=== PATIENT | male | born 1945 | race Caucasian/White ===

== ENCOUNTER → 2018-07-11 12:40 | Outpatient (CLI) | payer MEDICARE, OTHER, SELFPAY ==
--- NOTE | 2018-07-11 | DI.ECHO.S_ITS ---
[facility]---------+ [facility] +---------+ : : [address] : : : : [id number] : : : : Phone: [phone] Echocardiogram Report + + :Name: EARL PATTEN Study Date: 07/11/2018 Height: 72 in : :[facility] Weight: 173 lb : : Gender: Male BSA: 2.0 m2 : :: 1945 Age: 72 yrs BP: 116/66 mmHg: :Reason For Study: Aortic valve stenosis : :Ordering Physician: Shlomo : :[place] Performed By: Aixa Petit : :Referring: Dr. Dejon Linares : + + Interpretation Summary Left ventricular systolic function is normal without focal wall motion abnormalities with the ejection fraction visually estimated to be 60-65% and appears slightly less dynamic compared to the previous study. There is borderline concentric left ventricular hypertrophy but diastolic parameters suggest probable normal left ventricular diastolic function and normal filling pressures. The right ventricle is normal in size and function and is unchanged compared to the previous study. The right ventricular systolic pressure is estimated to be at least 33 mmHg based on an estimated right atrial pressure of 3 mm Hg. Comparison with the previous study is not possible because this was unable to be assessed on the previous study. Both atria are normal in size and are unchanged compared to the previous study. The aortic valve is bicuspid and moderately calcified with severely reduced leaflet mobility that is progressive compared to the previous study producing probable severe aortic stenosis with a peak aortic velocity that is now 4.3 m/s compared to 3.3 m/s previously and now with a mean gradient of 38 mmHg and a severity ratio of 0.24. The calculated aortic valve area is 0.8 cm2. No aortic regurgitation is present. There is no other significant valvular heart disease. The aortic root is mildly dilated and measures moderately larger compared to the previous study while the ascending aorta is mild-moderately enlarged and is similar compared to the previous study. Procedure: A two-dimensional transthoracic echocardiogram with color flow and Doppler was performed. The study quality was technically adequate. Comparison is made with the echocardiogram of 08-30-15. The patient was in normal sinus rhythm during the exam. Left Ventricle: The left ventricle is normal in size. There is borderline concentric left ventricular hypertrophy. Left ventricular systolic function is normal without focal wall motion abnormalities. The ejection fraction is estimated to be 60-65%. This is slightly less dynamic compared to the previous study. Diastolic parameters suggest probable normal left ventricular diastolic function and normal filling pressures. Right Ventricle: The right ventricle is normal in size and function. This is unchanged compared to the previous study. Atria: Both atria are normal in size. This is unchanged compared to the previous study. The interatrial septum is intact with no evidence for an atrial septal defect. Mitral Valve: The mitral valve is grossly normal. There is trace mitral regurgitation. This is unchanged compared to the previous study. Aortic Valve: The aortic valve is bicuspid. The aortic valve is moderately calcified. Leaflet mobility is severely reduced. This is progressive compared to the previous study. There is severe aortic stenosis. This is progressive compared to the previous study. The peak aortic velocity is 4.3 m/sec. The peak aortic velocity on the previous exam was 3.3 m/sec. The aortic valve mean gradient is 38 mmHg. Severity ratio is 0.24. The calculated aortic valve area is 0.8 cm2. No aortic regurgitation is present. Tricuspid Valve: The tricuspid valve is normal in structure and function. There is trace tricuspid regurgitation. The right ventricular systolic pressure is estimated to be at least 33 mmHg based on an estimated right atrial pressure of 3 mm Hg. Comparison with the previous study is not possible because this was unable to be assessed on the previous study. Pulmonic Valve: The pulmonic valve is not well seen, but is grossly normal. There is trace pulmonic regurgitation. There is no other significant valvular heart disease. Great Vessels: The aortic root is mildly dilated. This is moderately larger compared to the previous study. The ascending aorta is mild-moderately enlarged. This is similar compared to the previous study. The aortic arch is normal in size. The IVC is of normal diameter and collapses greater than 50% with a sniff. This suggests a low right atrial pressure of 3 mm Hg. Pericardium/ Pleura There is no pericardial effusion. There is no pleural effusion. MMode/2D Measurements & Calculations LVIDd: 4.0 cm LVOT diam: 2.1 cm LVIDs: 2.7 cm Ao root diam: 4.2 cm FS: 33.9 % asc Aorta Diam: 3.9 cm IVSd: 1.1 cm Ao Arch Diam (Prox Trans): 2.6 cm LVPWd: 1.0 cm LV bowers. diameter/BSA (cm/m^2): 2.0 LV sys. diameter/BSA (cm/m^2): 1.3 LA dimension: 4.3 cm RA long axis: 4.6 cm LA A2 area: 19.7 cm2 RA area: 15.9 cm2 LA A4 area: 17.7 cm2 RA vol: 47.1 ml LA length (vol): 4.9 cm RA : 23.5 ml/m2 LA vol: 59.8 ml IVC diam: 1.4 cm LA vol index: 29.9 ml/m2 RVDd major: 6.5 cm RVD1 (basal): 2.5 cm RVD2 (mid): 2.8 cm SHADE (plan): 1.5 cm2 Doppler Measurements & Calculations Ao V2 max: 426.3 cm/sec LVOT Max Vern: 93.5 cm/sec Ao V2 mean: 279.3 cm/sec LV V1 max P.5 mmHg Ao max P.7 mmHg LV V1 VTI: 22.7 cm Ao mean P.8 mmHg SHADE(I,D): 0.82 cm2 Ao V2 VTI: 92.9 cm SHADE(V,D): 0.74 cm2 sev ratio: 0.24 SHADE indexed to BSA (cm^2/m^2): 0.41 MV E max vern: 82.8 cm/sec TR max vern: 275.4 cm/sec MV A max vern: 75.8 cm/sec TR max P.3 mmHg MV E/A: 1.1 PA V2 max: 99.0 cm/sec Med Peak E' Vern: 6.3 cm/sec PA V2 mean: 64.4 cm/sec E/E' med: 13.1 PA mean P.9 mmHg Lat Peak E' Vern: 7.7 cm/sec PA Accel Time: 0.14 sec E/E' lat: 10.8 E/e' average: 11.9 MV dec time: 0.34 sec MV P1/2t: 101.9 msec MV P1/2t max vern: 83.3 cm/sec SV(LVOT): 76.5 ml MVA(P1/2t): 2.2 cm2 Reading Physician:GAVIOTA
== END ==
PROVIDERS: PCP Family Medicine; Visit Provider Specialist
DX: I35.0 Nonrheumatic aortic (valve) stenosis (principal)
CPT/HCPCS: 93306

== ENCOUNTER → 2019-12-23 10:45 | Outpatient (CLI) | payer MEDICARE, OTHER, SELFPAY | PROVIDERS: PCP Family Medicine; Referring Provider Physician Assistant; Visit Provider Physician Assistant | DX: M54.2 Cervicalgia (principal); M25.519 Pain in unspecified shoulder; Z53.8 Procedure and treatment not carried out for other reasons ==

== ENCOUNTER → 2021-03-18 10:42 | Outpatient (CLI) | payer MEDICARE, OTHER, SELFPAY ==
[2021-03-18 19:13] LABS: Add Manual Diff / Slide Review NO; Basophils Absolute Auto 0 /uL (0-100); Basophils Percent Auto 0.7 % (0-2); Eosinophils Absolute Auto 100 /uL (0-450); Eosinophils Percent Auto 1.6 % (2-4); Lymphocytes Absolute Auto 1300 /uL (1100-4500); Lymphocytes Percent Auto 32.7 % (25-40); Mean Corpuscular HGB Conc 33.4 % (30-36); Monocytes Absolute Auto 300 /uL (0-900); Monocytes Percent Auto 8.7 % (3-14); Neutrophils Absolute Auto 2200 /uL (1500-7000); Neutrophils Percent Auto 56.3 % (50-75); Platelet Count 156 X10^3/uL (150-400); Red Blood Cell Count 4.37 X10^6/uL (4.5-5.9); Red Cell Distribution Width 14.3 % (11.6-14.8)
[2021-03-18 19:28] LABS: Alanine Aminotransferase 19 IU/L (<50); Albumin 4.3 g/dL (3.5-5.0); Albumin Globulin Ratio 1.2 (1.0-2.8); Alkaline Phosphatase 88 U/L (38-126); Aspartate Aminotransferase 35 IU/L (17-59); BUN Creatinine Ratio 13.8 (6-22); Bilirubin Total 0.8 mg/dL (0.2-1.3); Blood Urea Nitrogen 16 mg/dL (9-20); Calcium 9.6 mg/dL (8.4-10.2); Carbon Dioxide 27 mmol/L (22-32); Chloride 104 mmol/L (98-107); Estimated Glomerular Filt Rate > 60.0 mL/min (>60); Globulin 3.7 g/dL (1.7-4.1); Glucose 115 mg/dL (80-110); Sodium 139 mmol/L (137-145)
[2021-03-18 19:33] LABS: HEMOLYSIS 68 (0-50)
== END ==
PROVIDERS: PCP Family Medicine; Referring Provider Physician Assistant; Visit Provider Physician Assistant
DX: N23 Unspecified renal colic (principal); R30.0 Dysuria; Z87.442 Personal history of urinary calculi; Z98.890 Other specified postprocedural states
CPT/HCPCS: 80053; 85025

== ENCOUNTER 2022-07-14 11:34 | Emergency (ER) | payer MEDICARE, OTHER, SELFPAY ==
[2022-07-14] VITALS (12 sets, daily range): BP systolic 118–140; BP diastolic 61–71; PULSE 56–65; RESP 16; TEMP 36.6; O2SAT 98–100
[2022-07-14 12:10] LABS: Bacteria Urine None Seen; Culture Indicated Urine Cult Not Indicated; RBC Urine None Seen (0-5/HPF); Squamous Epithelial Cell Urine 1-5 /HPF (0-5/HPF); WBC Urine None Seen (0-5/HPF)
[2022-07-14 12:59] LABS: Add Manual Diff / Slide Review NO; Basophils Absolute Auto 0 /uL (0-100); Basophils Percent Auto 0.4 % (0-2); Eosinophils Absolute Auto 0 /uL (0-450); Eosinophils Percent Auto 0.3 % (2-4); Hematocrit 43.2 % (41-53); Hemoglobin 14.7 g/dL (13.5-17.5); Lymphocytes Absolute Auto 1200 /uL (1100-4500); Lymphocytes Percent Auto 23.8 % (25-40); Mean Corpuscular HGB Conc 34.1 % (30-36); Mean Corpuscular Hemoglobin 32.8 PG (26-34); Mean Corpuscular Volume 96.1 fL (80-100); Monocytes Absolute Auto 300 /uL (0-900); Monocytes Percent Auto 6.5 % (3-14); Neutrophils Absolute Auto 3500 /uL (1500-7000); Platelet Count 143 X10^3/uL (150-400); Red Cell Distribution Width 12.6 % (11.6-14.8); White Blood Cell Count 5.1 X10^3/uL (4.5-11.0)
[2022-07-14 13:10] LABS: BUN Creatinine Ratio 14.3 (6-22); Blood Urea Nitrogen 16 mg/dL (9-20); Calcium 9.2 mg/dL (8.4-10.2); Carbon Dioxide 25 mmol/L (22-32); Chloride 106 mmol/L (98-107); Estimated Glomerular Filt Rate > 60 mL/min (>60); Glucose 102 mg/dL (80-110); HEMOLYSIS < 15 (0-50); Potassium 4.3 mmol/L (3.4-5.1); Sodium 142 mmol/L (137-145)
--- NOTE | 2022-07-14 13:33 | ED_ITS ---
HPI - Male Genitourinary <Daryl Bruce PA-C - Last Filed: 07/14/22 16:07> General Chief complaint: Urogenital-Male Stated complaint: history of kidney stones/feels like stones/pain Time Seen by Provider: 07/14/22 12:48 Source: patient and family Mode of arrival: Wheelchair History of Present Illness HPI Narrative: 76-year-old male with past medical history nephrolithiasis, status post aortic valve replacement, on Eliquis presents to the ED with 1 day of right-sided flank pain. Patient states that the pain started acutely this morning, about 8/10 pain, he could not get into any position to rest comfortably. Patient endorses that the pain is similar to prior kidney stone pain. Patient states that he was diagnosed with 3-4 kidney stones on the right side about 4-5 months ago. Unclear how large the stones are. Patient denies fever, chills, nausea, vomiting, chest pain, shortness of breath, dysuria, urinary frequency, urinary urgency, hematuria, abdominal pain, diarrhea, lightheadedness, dizziness, sy ncope. Related Data Home Medications Medication Instructions Recorded Confirmed ASCORBIC ACID (VITAMIN C) 500 mg PO ##0 05/16/12 08/08/21 metoprolol tartrate 50 mg tablet 50 mg PO BID ##0 05/16/12 06/24/21 rosuvastatin 10 mg tablet (Crestor) mg PO QDAY ##0 05/16/12 08/08/21 apixaban 5 mg tablet (Eliquis) 5 mg PO BID 03/18/21 08/08/21 tamsulosin 0.4 mg capsule (Flomax) 0.4 mg PO BEDTIME 03/18/21 08/08/21 Previous Rx's Medication Instructions Recorded baclofen 10 mg tablet 10 mg PO QID PRN muscle spasm #60 08/08/21 tabs gabapentin 100 mg capsule 100 mg PO TID #90 caps 08/08/21 hydrocodone 5 mg-acetaminophen 300 1 tab PO Q4-6H PRN pain (scale 08/08/21 mg tablet score 7-10) #12 tabs Allergies Allergy/AdvReac Type Severity Reaction Status Date / Time No Known Allergies Allergy Uncoded 09/01/17 11:56 Review of Systems <Daryl Bruce PA-C - Last Filed: 07/14/22 16:07> Review of Systems ROS Unobtainable: All systems reviewed & are unremarkable except as noted in HPI and below Constitutional Constitutional: Denies chills, Denies fatigue, Denies fever(s), Denies frequent falls, Denies lethargy and Denies weakness Eyes Eyes: Denies change in vision, Denies eye discharge, Denies irritation and Denies loss of vision ENT Ears, Nose, Mouth, and Throat: Denies change in voice, Denies dizziness, Denies neck pain, Denies sore throat and Denies throat swelling Cardiovascular Cardiovascular: Denies chest pain, Denies irregular heart rhythm, Denies lightheadedness, Denies palpitations, Denies dyspnea, Denies dyspnea on exertion and Denies orthopnea Respiratory Respiratory: Denies cough, Denies dyspnea, Denies dyspnea on exertion and Denies wheezing Gastrointestinal Gastrointestinal: Denies abdominal pain, Denies change in bowel habits, Denies diarrhea, Denies nausea and Denies vomiting Genitourinary Genitourinary: Denies hematuria, Denies dysuria, Denies dysuria, Denies flank pain, Denies urinary frequency, Denies urinary incontinence and Denies urinary urgency Comments: R flank pain Musculoskeletal Musculoskeletal: Denies back pain, Denies muscle weakness, Denies neck pain, Denies numbness and Denies tingling Integumentary/Breasts Skin/Breast: Denies pruritus, Denies erythema, Denies rash and Denies wounds Neurologic Neurologic: Denies behavioral changes, Denies confusion, Denies dizziness, Denies frequent falls, Denies loss of vision, Denies numbness, Denies tingling and Denies weakness Psychiatric Psychiatric: Denies anxiety, Denies behavioral changes, Denies confusion, Denies depression, Denies homicidal ideation and Denies suicidal ideation Endocrine Endocrine: Denies fatigue, Denies flushing and Denies palpitations Hematologic/Lymphatic Hematologic/Lymphatic: Denies easy bruising Allergic/Immunologic Allergic/Immunologic: Denies urticaria, Denies throat swelling and Denies wheezing Patient History <Daryl Bruce PA-C - Last Filed: 07/14/22 16:07> Social History Smoking Status: Former smoker Smoking Status: Former smoker alcohol intake frequency: a few times a week Substance Use Type: does not use Exam <Daryl Bruce PA-C - Last Filed: 07/14/22 16:07> Narrative Exam Narrative: Const General:?cooperative, healthy appearing and comfortable [facility] Head:?normal to inspection Ears:?hearing grossly normal bilaterally Nose:?external nose normal Face and sinus:?normal facial exam and sinuses nontender Mouth:?oral mucosae normal Throat:?posterior oropharynx normal Eyes General:?appearance normal, both eyes and all related structures Neck Neck:?normal visual inspection and no lymphadenopathy noted Resp Effort & Inspection:?normal respiratory effort Auscultation:?clear to auscultation bilaterally Cardio Rate:?regular rate Rhythm:?regular rhythm GI Abdomen is soft, nondistended, nontender to palpation. There is right-sided CVA tenderness. Neuro General:?patient alert, patient awake and patient oriented x3 Initial Vital Signs Initial Vital Signs: Vital Signs Temperature 97.8 F 07/14/22 11:40 Pulse Rate 65 07/14/22 11:40 Respiratory Rate 16 07/14/22 11:40 Blood Pressure 130/62 07/14/22 11:40 Pulse Oximetry 99 07/14/22 11:40 Oxygen Delivery Method 07/14/22 11:40 <Rodriguez Griffiths DO - Last Filed: 07/15/22 06:53> Initial Vital Signs Initial Vital Signs: Vital Signs Temperature 97.8 F 07/14/22 11:40 Pulse Rate 65 07/14/22 11:40 Respiratory Rate 16 07/14/22 11:40 Blood Pressure 130/62 07/14/22 11:40 Pulse Oximetry 99 07/14/22 11:40 Oxygen Delivery Method 07/14/22 11:40 Course <Daryl Bruce PA-C - Last Filed: 07/14/22 16:07> Orders Ordered: Discontinued Medications Lidocaine HCl 5 ml/ Sodium (Chloride) 55 mls @ 330 mls/hr IV NOW ONE Stop: 07/14/22 12:51 Last Infusion: 07/14/22 14:34 Dose: 0 mls/hr Documented By: Admin: 07/14/22 14:11 Dose: 330 mls/hr Documented By: COLLEEN Vital Signs Vital signs: Vital Signs - 8 hr 07/14/22 11:40 07/14/22 13:48 07/14/22 13:49 Temperature 97.8 F Pulse Rate 65 62 Respiratory Rate 16 Blood Pressure 130/62 140/61 Pulse Oximetry 99 99 Oxygen Delivery Method Room Air 07/14/22 13:49 07/14/22 14:00 07/14/22 14:00 Temperature Pulse Rate 62 59 L Respiratory Rate Blood Pressure 125/65 Pulse Oximetry 100 98 Oxygen Delivery Method 07/14/22 14:15 07/14/22 14:15 07/14/22 14:30 Temperature Pulse Rate 56 L Respiratory Rate Blood Pressure 129/64 121/66 Pulse Oximetry 98 Oxygen Delivery Method 07/14/22 14:30 07/14/22 14:45 07/14/22 14:45 Temperature Pulse Rate 59 L 58 L Respiratory Rate Blood Pressure 121/69 Pulse Oximetry 98 99 Oxygen Delivery Method 07/14/22 15:00 07/14/22 15:01 07/14/22 15:01 Temperature Pulse Rate 63 60 Respiratory Rate Blood Pressure 118/71 Pulse Oximetry 98 98 Oxygen Delivery Method 07/14/22 15:15 07/14/22 15:15 07/14/22 15:30 Temperature Pulse Rate 60 Respiratory Rate Blood Pressure 132/61 129/64 Pulse Oximetry 99 Oxygen Delivery Method 07/14/22 15:30 07/14/22 15:45 07/14/22 15:45 Temperature Pulse Rate 56 L 59 L Respiratory Rate Blood Pressure 122/66 Pulse Oximetry 99 99 Oxygen Delivery Method <Rodriguez Griffiths, - Last Filed: 07/15/22 06:53> Orders Ordered: Discontinued Medications Lidocaine HCl 5 ml/ Sodium (Chloride) 55 mls @ 330 mls/hr IV NOW ONE Stop: 07/14/22 12:51 Last Infusion: 07/14/22 14:34 Dose: 0 mls/hr Documented By: Admin: 07/14/22 14:11 Dose: 330 mls/hr Documented By: RB Vital Signs Vital signs: Vital Signs - 8 hr 07/14/22 11:40 07/14/22 13:48 07/14/22 13:49 Temperature 97.8 F Pulse Rate 65 62 Respiratory Rate 16 Blood Pressure 130/62 140/61 Pulse Oximetry 99 99 Oxygen Delivery Method Room Air 07/14/22 13:49 07/14/22 14:00 07/14/22 14:00 Temperature Pulse Rate 62 59 L Respiratory Rate Blood Pressure 125/65 Pulse Oximetry 100 98 Oxygen Delivery Method 07/14/22 14:15 07/14/22 14:15 07/14/22 14:30 Temperature Pulse Rate 56 L Respiratory Rate Blood Pressure 129/64 121/66 Pulse Oximetry 98 Oxygen Delivery Method 07/14/22 14:30 07/14/22 14:45 07/14/22 14:45 Temperature Pulse Rate 59 L 58 L Respiratory Rate Blood Pressure 121/69 Pulse Oximetry 98 99 Oxygen Delivery Method 07/14/22 15:00 07/14/22 15:01 07/14/22 15:01 Temperature Pulse Rate 63 60 Respiratory Rate Blood Pressure 118/71 Pulse Oximetry 98 98 Oxygen Delivery Method 07/14/22 15:15 07/14/22 15:15 07/14/22 15:30 Temperature Pulse Rate 60 Respiratory Rate Blood Pressure 132/61 129/64 Pulse Oximetry 99 Oxygen Delivery Method 07/14/22 15:30 07/14/22 15:45 07/14/22 15:45 Temperature Pulse Rate 56 L 59 L Respiratory Rate Blood Pressure 122/66 Pulse Oximetry 99 99 Oxygen Delivery Method MDM - Male Genitourinary <Hymvenancio Bruce PA-C - Last Filed: 07/14/22 16:07> Lab Data 07/14/22 12:31 07/14/22 12:31 Labs: Lab Results 07/14/22 07/14/22 07/14/22 Range/Units 11:50 12:31 12:31 WBC 5.1 (4.5-11.0) X10^3/uL RBC 4.50 (4.5-5.9) X10^6/uL Hgb 14.7 (13.5-17.5) g/dL Hct 43.2 (41-53) % MCV 96.1 (80-100) fL MCH 32.8 (26-34) PG MCHC 34.1 (30-36) % RDW 12.6 (11.6-14.8) % Plt Count 143 L (150-400) X10^3/uL Neut % (Auto) 69.0 (50-75) % Lymph % (Auto) 23.8 L (25-40) % Ceiba % (Auto) 6.5 (3-14) % Eos % (Auto) 0.3 L (2-4) % Baso % (Auto) 0.4 (0-2) % Neut # (Auto) 3500 (7053-5413) /uL Lymph # (Auto) 1200 (5909-6699) /uL Ceiba # (Auto) 300 (0-900) /uL Eos # (Auto) 0 (0-450) /uL Baso # (Auto) 0 (0-100) /uL Sodium 142 (137-145) mmol/L Potassium 4.3 (3.4-5.1) mmol/L Chloride 106 (98-107) mmol/L Carbon Dioxide 25 (22-32) mmol/L BUN 16 (9-20) mg/dL Creatinine 1.12 (0.66-1.25) mg/dL Estimated GFR > 60 (>60) mL/min BUN/Creatinine Ratio 14.3 (6-22) Glucose 102 (80-110) mg/dL Calcium 9.2 (8.4-10.2) mg/dL Urine RBC None seen (0-5/HPF) Urine WBC None seen (0-5/HPF) Ur Squamous Epith Cells 1-5 /hpf (0-5/HPF) Urine Bacteria None seen (None) Ur Culture Indicated? Cult not indicated Urine Dip Bedside Urine Glucose Negative Bedside Urine Bilirubin - Negative Bedside Urine Ketone - Negative Urine Specific [place]ays[place] 1.030 Bedside Urine Occult Blood - Negative Bedside Urine pH 5.5 Bedside Urine Protein + 30 Bedside Urine Urobilinogen - Negative Bedside Urine Nitrite - Negative Bedside Urine Leukocytes - Negative Esterase MDM Narrative Medical decision making narrative: 76-year-old male with past medical history nephrolithiasis, status post aortic valve replacement, on Eliquis presents to the ED with 1 day of right-sided flank pain. Concern for nephrolithiasis versus UTI versus pyelonephritis versus musculoskeletal sprain/strain versus other. Will obtain labs, UA, CT abdomen pelvis. Will give lidocaine IV for pain. Will reassess. Patient's pain subsided with lidocaine. Labs, urine without acute findings. CT abdomen pelvis showed no obstructing stones, but did show some cholelithiasis without inflammatory changes. Ultrasound abdomen was obtained to rule out ch olelithiasis, choledocholithiasis. Ultrasound abdomen shows numerous nonmobile gallstones without signs of cholecystitis and no dai biliary dilatation. Discussed findings with patient. Explained that symptoms could be either due to kidney stones that he passed prior to the CT or due to intermittent biliary colic. GI follow-up was recommended. Recommend low-fat diet. ED return precautions were discussed with patient. Patient verbalized understanding. Medical records reviewed: Yes <Rodriguez Griffiths DO - Last Filed: 07/15/22 06:53> Lab Data Labs: Lab Results 07/14/22 07/14/22 07/14/22 Range/Units 11:50 12:31 12:31 WBC 5.1 (4.5-11.0) X10^3/uL RBC 4.50 (4.5-5.9) X10^6/uL Hgb 14.7 (13.5-17.5) g/dL Hct 43.2 (41-53) % MCV 96.1 (80-100) fL MCH 32.8 (26-34) PG MCHC 34.1 (30-36) % RDW 12.6 (11.6-14.8) % Plt Count 143 L (150-400) X10^3/uL Neut % (Auto) 69.0 (50-75) % Lymph % (Auto) 23.8 L (25-40) % Ceiba % (Auto) 6.5 (3-14) % Eos % (Auto) 0.3 L (2-4) % Baso % (Auto) 0.4 (0-2) % Neut # (Auto) 3500 (6831-5438) /uL Lymph # (Auto) 1200 (0075-3634) /uL Ceiba # (Auto) 300 (0-900) /uL Eos # (Auto) 0 (0-450) /uL Baso # (Auto) 0 (0-100) /uL Sodium 142 (137-145) mmol/L Potassium 4.3 (3.4-5.1) mmol/L Chloride 106 (98-107) mmol/L Carbon Dioxide 25 (22-32) mmol/L BUN 16 (9-20) mg/dL Creatinine 1.12 (0.66-1.25) mg/dL Estimated GFR > 60 (>60) mL/min BUN/Creatinine Ratio 14.3 (6-22) Glucose 102 (80-110) mg/dL Calcium 9.2 (8.4-10.2) mg/dL Urine RBC None seen (0-5/HPF) Urine WBC None seen (0-5/HPF) Ur Squamous Epith Cells 1-5 /hpf (0-5/HPF) Urine Bacteria None seen (None) Ur Culture Indicated? Cult not indicated Urine Dip Bedside Urine Glucose Negative Bedside Urine Bilirubin - Negative Bedside Urine Ketone - Negative Urine Specific [place] 1.030 Bedside Urine Occult Blood - Negative Bedside Urine pH 5.5 Bedside Urine Protein + 30 Bedside Urine Urobilinogen - Negative Bedside Urine Nitrite - Negative Bedside Urine Leukocytes - Negative Esterase Discharge Plan Departure Patient Disposition: Home Clinical Impression: Flank pain Instructions: Gallstones, DI for Kidney Stones, DI for Biliary Colic Activity Restrictions/Additional Instructions: You were evaluated in the ED today for right-sided flank pain. Your labs, urine were normal. Your CT and ultrasound did not show any obstructing kidney stones, but did show several gallstones. It is possible that your pain was either from obstructing kidney stones that you past prior to the CT or due to biliary colic which is caused by intermittent blockage from the gallstones. Please follow-up with a GI specialist as soon as possible for further evaluation. It is advisable to eat a diet lower in fat to prevent biliary colic. Please continue to stay well hydrated. If your symptoms worsen, you develop nausea, vomiting, fever, chills, please return to the ED. Prescriptions: No Action metoprolol tartrate 50 MG tablet 50 mg PO BID Qty: 0 rosuvastatin [Crestor] 10 MG tablet PO QDAY Qty: 0 ASCORBIC ACID (VITAMIN C) 500 mg PO Qty: 0 tamsulosin [Flomax] 0.4 mg capsule 0.4 mg PO BEDTIME Eliquis 5 mg tablet 5 mg PO BID gabapentin 100 mg capsule 100 mg PO TID Qty: 90 0RF Rx Instructions: can take 2 or 3 baclofen 10 mg tablet 10 mg PO QID PRN (Reason: muscle spasm) Qty: 60 0RF hydrocodone-acetaminophen 5-300 mg tablet 1 tab PO Q4-6H PRN (Reason: pain (scale score 7-10)) Qty: 12 0RF Referrals: Alejandrina Schmitz PA-C [Primary Care Provider] - Stand Alone Forms: Patient Portal/API <Rodriguez Griffiths DO - Last Filed: 07/15/22 06:53> Cosign ED Attending Alphonse Attestation: I was immediately available in the department for consultation. Documentation has been reviewed. I agree with assessment and plan.
--- NOTE | 2022-07-14 13:33 | DI.CT.S_ITS ---
PROCEDURE: CT ABDOMEN PELVIS WO CON INDICATIONS: Pain, hx of nephrolithiasis, TECHNIQUE: After the administration of oral contrast, 5 mm thick sections acquired from the diaphragms to the symphysis. 5 mm coronal and sagittal reformats were performed. For radiation dose reduction, the following was used: automated exposure control, adjustment of mA and/or kV according to patient size. COMPARISON: None. FINDINGS: Lower thorax: Aortic valve replacement. Heart size normal. Moderate hiatal hernia noted. Calcified right lower lobe granuloma Liver: Normal in size and attenuation. No contour deformity present. Biliary system: Calcified stones noted in the lumen of the gallbladder. No pericholecystic inflammatory change. No intra or extrahepatic bile duct dilation. Pancreas: Unremarkable without mass or inflammation evident. Spleen: Normal in size and density. Adrenals: Normal morphology and density. Reproductive system: Prosthetic brachytherapy Urinary system: Left renal nonobstructing calculus measure up to 4 mm. The left peripelvic cyst with no hydronephrosis ureteral calculus bilaterally. Gastrointestinal system: The bowel is unremarkable without evidence of bowel obstruction or inflammation. The stomach appears unremarkable. Multiple diverticula arise from the sigmoid colon without evidence of diverticulitis. Appendix: No findings to suggest acute appendicitis. Peritoneal spaces: No mesenteric or retroperitoneal adenopathy. No free air. No free fluid. Vasculature: Aortic atherosclerotic vascular calcification noted without evidence of aneurysm. Abdominal wall: Abdominal wall intact without evidence of ventral or inguinal hernias. Musculoskeletal: Normal bone mineralization. Degenerative disc disease and arthropathy noted in lower lumbar spine. No acute fractures. IMPRESSION: 1. Left nonobstructing renal calculi. No hydronephrosis bilaterally. 2. Cholelithiasis and diverticulosis without evidence of inflammatory change. 3. Additional chronic findings as above Approved by: Víctor Benton M.D. on 07/14/2022 at 13:20
[2022-07-14] MEDS: LIDOCAINE 2% (PF) 5 ML in SODIUM CHLORIDE 0.9% 50 ML 330 ML IV (14:11)
--- NOTE | 2022-07-14 14:27 | DI.US.S_ITS ---
PROCEDURE: US ABDOMEN LIMITED INDICATIONS: GALLSTONES ON CT TECHNIQUE: Real-time focused scanning was performed of the abdomen, with image documentation. COMPARISON: [facility], CT, CT ABDOMEN PELVIS WO CON, 07/14/2022, 13:35. [facility], [place], ABDOMEN LIMITED, 11/10/2008, 3:17. FINDINGS: The liver is normal in size and demonstrates no focal lesions. The left lobe of the liver is not well seen, secondary to overlying bowel gas. Numerous nonmobile gallstones are seen. The gallbladder wall is not thickened, measuring 3 mm or less. No specific pericholecystic fluid is seen. The sonographic Duran sign is negative. There is no biliary dilatation, the common bile duct measures 7 mm. The pancreas is not well seen, secondary to overlying bowel gas. IMPRESSION: Numerous nonmobile gallstones are seen, without additional sonographic signs of cholecystitis. No dai biliary dilatation. Dictated by: Familia Gonzales M.D. on 07/14/2022 at 14:43 Approved by: Familia Gonzales M.D. on 07/14/2022 at 14:44
== END 2022-07-14 16:15 | disposition home or self-care (01) ==
PROVIDERS: Emergency Medicine; Emergency Provider Student in an Organized Health Care Education/Training Program; PCP Physician Assistant
DX: R10.9 Unspecified abdominal pain (principal); Z95.2 Presence of prosthetic heart valve; Z87.442 Personal history of urinary calculi; Z79.01 Long term (current) use of anticoagulants
CPT/HCPCS: 36415; 74176; 76705; 80048; 81003; 81015; 85025; 96365; 99284; Q9967